=== PATIENT | female | born 1985 | race Caucasian/White ===

== ENCOUNTER 2016-07-13 12:59 | Inpatient (IN) | payer BC ==
[~2016-07-13] VITALS: Ht 170.2 cm; Wt 93.6 kg
[~2016-07-13 12:59] MED LIST: LEVAQUIN 5500 MG/TA1 PO; PREDNISONE10 MG PO; PROAIR HFA0.09 MG/AC IH
[2016-07-18] VITALS (22 sets, daily range): BP systolic 115–180; BP diastolic 67–108; PULSE 62–100; TEMP 97.4–98
[2016-07-18 16:18] LABS: BASO % 0.3 % (0.0-2.0); EOS # 0.2 (0.0-0.7); EOS % 2.4 % (0-4.0); GRAN % 77.3 % (42.2-75.2); HEMATOCRIT 39.4 % (37.0-47.0); HEMOGLOBIN 13.4 g/dl (12.5-16.0); LYMPH # 1.1 (1.2-3.4); MEAN CELL VOLUME 90 fl (80.0-100.0); MEAN CORPUSCULAR HEMOGLOBIN 31 pg (27.0-31.0); MEAN CORPUSCULAR HGB CONC 34 g/dl (33.0-37.0); MEAN PLATELET VOLUME 10.8 fl (7.4-10.4); MONO # 0.4 (0.1-0.6); PLATELET COUNT 208 K/mm3 (130-400); RED BLOOD COUNT 4.37 M/mm3 (4.10-5.30); REDCELL DISTRIBUTION WIDTH-CV 12.8 % (11.5-14.5); WHITE BLOOD COUNT 7.8 K/mm3 (4.8-10.8)
[2016-07-18 17:31] LABS: AMPHETAMINE URINE NEGATIVE; BARBITURATES URINE NEGATIVE; BENZODIAZEPINES URINE NEGATIVE; BUPRENORPHINE URINE NEGATIVE; METHADONE URINE NEGATIVE; OPIATES URINE NEGATIVE; OXYCODONE URINE NEGATIVE; PHENCYCLIDINE URINE NEGATIVE; PROPOXYPHENE URINE NEGATIVE; THC CANNABINOIDS URINE POSITIVE
[2016-07-18 18:29] LABS: ADJUSTED CALCIUM 9.6 mg/dL (8.4-10.2); ALBUMIN 3.6 gm/dL (3.5-5.0); BILIRUBIN,TOTAL 0.7 mg/dL (0.0-1.0); CALCIUM 9.3 mg/dL (8.4-10.2); CREATININE, serum 0.53 mg/dL (0.52-1.25); POTASSIUM 4.3 mmol/L (3.4-5.0); TOTAL PROTEIN 7.3 gm/dL (6.4-8.2)
[2016-07-18 18:43] LABS: PH 6 (5-8); URINE APPEARANCE Clear; URINE BACTERIA None Seen /hpf; URINE BILIRUBIN Negative (NEGATIVE); URINE BLOOD Negative (NEGATIVE); URINE COLOR Yellow; URINE GLUCOSE Negative (NEGATIVE); URINE KETONE Trace (NEGATIVE); URINE RBC 0-2 /hpf; URINE UROBILINOGEN Negative (NEGATIVE); URINE WBC 0-2 /hpf
[2016-07-19 04:30] VITALS: BP 139/85; PULSE 73; TEMP 97.7
[2016-07-19 07:00] VITALS: BP 118/63; PULSE 76; TEMP 98.1
[2016-07-19 08:59] LABS: BASO % 0.3 % (0.0-2.0); EOS # 0.2 (0.0-0.7); EOS % 2.3 % (0-4.0); GRAN # 5.9 (1.4-6.5); GRAN % 75.2 % (42.2-75.2); LYMPH # 1.3 (1.2-3.4); LYMPH % 16.6 % (20.0-51.0); MEAN CELL VOLUME 92 fl (80.0-100.0); MEAN CORPUSCULAR HGB CONC 33 g/dl (33.0-37.0); MEAN PLATELET VOLUME 11.1 fl (7.4-10.4); MONO # 0.4 (0.1-0.6); MONO % 4.7 % (1.7-9.3); PLATELET COUNT 155 K/mm3 (130-400); RED BLOOD COUNT 3.77 M/mm3 (4.10-5.30); REDCELL DISTRIBUTION WIDTH-CV 13.1 % (11.5-14.5); WHITE BLOOD COUNT 7.9 K/mm3 (4.8-10.8)
[2016-07-19 09:05] LABS: HEMATOCRIT 34.5 % (37.0-47.0); HEMOGLOBIN 11.5 g/dl (12.5-16.0); MEAN CORPUSCULAR HEMOGLOBIN 31 pg (27.0-31.0)
[2016-07-19 21:00] VITALS: BP 140/88; PULSE 78; TEMP 98.2
[2016-07-20] MEDS ORDERED: IBU600 MG PO (09:16)
[2016-07-20 09:45] VITALS: BP 151/88; PULSE 74; TEMP 97.6
== END 2016-07-20 11:50 | disposition home or self-care (01) | DRG 775 ==
LOC: LDRO 12:59 → EDSTATUS 14:56 → LDR 07-18 14:57 → OB 07-18 15:22 → LDR 07-18 15:22 → OB 07-18 22:30
PROVIDERS: Obstetrics & Gynecology
PROC: 10E0XZZ Delivery of Products of Conception, External Approach (ICD-10-PCS; principal; 2016-07-18)
PROC: 3E033VJ Introduction of Other Hormone into Peripheral Vein, Percutaneous Approach (ICD-10-PCS; 2016-07-18)
DX: O48.0 Post-term pregnancy (principal); O36.0130 Maternal care for anti-D [Rh] antibodies, third trimester, not applicable or unspecified; O99.324 Drug use complicating childbirth; O99.334 Smoking (tobacco) complicating childbirth; F12.90 Cannabis use, unspecified, uncomplicated; O99.333 Smoking (tobacco) complicating pregnancy, third trimester; F17.210 Nicotine dependence, cigarettes, uncomplicated; Z3A.40 40 weeks gestation of pregnancy; Z37.0 Single live birth
CPT/HCPCS: J2590; J2791; J7120

== ENCOUNTER 2017-06-29 22:08 | Inpatient (IN) | payer OTHER ==
[~2017-06-29] VITALS: Ht 170.2 cm; Wt 90.0 kg
[~2017-06-29 22:08] MED LIST changes: +IBU600 MG PO
[2017-06-29 22:52] VITALS: BP 141/94; PULSE 108; TEMP 97.6
[2017-06-29 23:37] LABS: BASO % 0.4 % (0.0-2.0); EOS # 0.2 (0.0-0.7); EOS % 2.4 % (0-4.0); GRAN # 5.6 (1.4-6.5); GRAN % 73.4 % (42.2-75.2); HEMOGLOBIN 12.7 g/dl (12.5-16.0); LYMPH # 1.4 (1.2-3.4); MEAN CELL VOLUME 88 fl (80.0-100.0); MEAN CORPUSCULAR HEMOGLOBIN 30 pg (27.0-31.0); MEAN CORPUSCULAR HGB CONC 34 g/dl (33.0-37.0); MEAN PLATELET VOLUME 12.9 fl (7.4-10.4); MONO # 0.4 (0.1-0.6); PLATELET COUNT 185 K/mm3 (130-400); RED BLOOD COUNT 4.19 M/mm3 (4.10-5.30); REDCELL DISTRIBUTION WIDTH-CV 13.2 % (11.5-14.5)
[2017-06-30] VITALS (15 sets, daily range): BP systolic 118–165; BP diastolic 75–89; PULSE 72–97; TEMP 98–98.2
[2017-06-30 03:30] LABS: TRICYCLIC ANTIDEPRESS URINE NEGATIVE
[2017-07-01 07:50] LABS: BASO % 0.4 % (0.0-2.0); EOS # 0.3 (0.0-0.7); EOS % 5.5 % (0-4.0); GRAN # 2.7 (1.4-6.5); GRAN % 55.5 % (42.2-75.2); LYMPH # 1.5 (1.2-3.4); LYMPH % 31.4 % (20.0-51.0); MEAN CELL VOLUME 90 fl (80.0-100.0); MEAN CORPUSCULAR HGB CONC 34 g/dl (33.0-37.0); MEAN PLATELET VOLUME 11.4 fl (7.4-10.4); MONO # 0.3 (0.1-0.6); MONO % 6.4 % (1.7-9.3); PLATELET COUNT 122 K/mm3 (130-400); RED BLOOD COUNT 3.58 M/mm3 (4.10-5.30)
[2017-07-01 08:14] LABS: HEMATOCRIT 32.1 % (37.0-47.0); HEMOGLOBIN 10.9 g/dl (12.5-16.0); MEAN CORPUSCULAR HEMOGLOBIN 30 pg (27.0-31.0)
[2017-07-01 09:15] VITALS: BP 124/80; PULSE 67; TEMP 97.3
[2017-07-01] MEDS ORDERED: PERCOCET 325 MG1 TA2 PO (10:08)
[2017-07-01] MEDS ORDERED: IBU800 M1 PO (10:08)
== END 2017-07-01 16:10 | disposition home or self-care (01) | DRG 767 ==
LOC: LDRO 22:08 → LDR 22:30 → OB 22:30
PROVIDERS: Student in an Organized Health Care Education/Training Program
PROC: 10E0XZZ Delivery of Products of Conception, External Approach (ICD-10-PCS; principal; 2017-06-30)
PROC: 10D17Z9 Manual Extraction of Products of Conception, Retained, Via Natural or Artificial Opening (ICD-10-PCS; 2017-06-30)
PROC: 0UJD7ZZ Inspection of Uterus and Cervix, Via Natural or Artificial Opening (ICD-10-PCS; 2017-06-30)
DX: O42.013 Preterm premature rupture of membranes, onset of labor within 24 hours of rupture, third trimester (principal); O36.0930 Maternal care for other rhesus isoimmunization, third trimester, not applicable or unspecified; Z3A.36 36 weeks gestation of pregnancy; Z37.0 Single live birth; O99.334 Smoking (tobacco) complicating childbirth; F17.210 Nicotine dependence, cigarettes, uncomplicated
CPT/HCPCS: J0690; J2590; J2791; J7120

== ENCOUNTER 2018-11-22 20:38 | Emergency (ER) | payer OTHER ==
[~2018-11-22] VITALS: Ht 167.6 cm; Wt 84.5 kg
[~2018-11-22 20:38] MED LIST changes: +IBU800 M1 PO; +PERCOCET 325 MG1 TA2 PO
[2018-11-22 20:43] VITALS: BP 141/81; PULSE 72; TEMP 97.5
== END 2018-11-22 22:00 | disposition left against medical advice (07) ==
LOC: COL.ER 20:38
DX: R05 Cough (principal); R06.00 Dyspnea, unspecified